=== PATIENT | male | born 1955 | race Caucasian/White ===

== ENCOUNTER 2023-11-20 05:52 | Day surgery (SDC) | payer MEDICARE ==
[2023-11-18 13:02] VITALS: BMI 23.1
[2023-11-20] MEDS ORDERED: PROPOFOL 20 ML ONE (08:21)
[2023-11-20] MEDS ORDERED: fentaNYL 50 mcg/mL 1 mL Vial ONE (08:21)
== END 2023-11-20 09:15 | disposition home or self-care (01) ==
LOC: CSHSDC 05:52
PROVIDERS: ATTEND Internal Medicine Gastroenterology
PROC: 0DB68ZX Excision of Stomach, Via Natural or Artificial Opening Endoscopic, Diagnostic (ICD-10-PCS; principal; 2023-11-20)
PROC: 0D753ZZ Dilation of Esophagus, Percutaneous Approach (ICD-10-PCS; 2023-11-20)
DX: K22.2 Esophageal obstruction (principal); K31.A0 Gastric intestinal metaplasia, unspecified; K31.89 Other diseases of stomach and duodenum; K29.50 Unspecified chronic gastritis without bleeding; K21.00 Gastro-esophageal reflux disease with esophagitis, without bleeding; K57.30 Diverticulosis of large intestine without perforation or abscess without bleeding; I10 Essential (primary) hypertension; F32.A Depression, unspecified; N40.0 Benign prostatic hyperplasia without lower urinary tract symptoms; J30.9 Allergic rhinitis, unspecified; Z79.899 Other long term (current) drug therapy
CPT/HCPCS: 43239; 43450; J3010; 88305; J2704